=== PATIENT | female | born 1945 | race Caucasian/White ===

== ENCOUNTER 2018-09-23 16:27 | Inpatient (IN) | payer MEDICARE, OTHER ==
[~2018-09-23] VITALS: Ht 160 cm; Wt 70.4 kg
[~2018-09-23 16:27] MED LIST: LEVO50TA64; LORA-52; NIFE60TA18
--- NOTE | 2018-09-23 16:41 | ERD ---
ER Documentation Chief Complaint Chief Complaint syncopal episode in bathroom. left arm pain no deformity. loc per ems HPI 73-year-old woman brought in by EMS after syncopal episode while at a [employer] bathroom. She has end-stage kidney disease and is due for hemodialysis today but has not yet received it. She had fecal incontinence with a syncopal episode today. She denies chest pain or shortness of breath, no headache or blurry vision, no vomiting. Patient fell onto her right side and also complains of right shoulder pain. Patient was transported here by EMS without further complications. ROS All systems reviewed and are negative except as per history of present illness. Medications Home Meds Reported Medications Atorvastatin Calcium* (Atorvastatin Calcium*) 20 Mg Tablet, 20 MG PO QHS, #30 TAB 09/23/18 Levothyroxine Sodium* (Levoxyl*) 137 Mcg Tablet, 137 MCG PO BEFORE BREAKFAST, #30 TAB 09/23/18 Benazepril Hcl* (Benazepril Hcl*) 40 Mg Tablet, 40 MG PO DAILY, #30 TAB 09/23/18 Amlodipine Besylate* (Amlodipine Besylate*) 10 Mg Tablet, 10 MG PO DAILY, #30 TAB 09/23/18 Hydralazine Hcl* (Apresoline*) 50 Mg Tab, 50 MG PO BID PRN for BLOOD PRESSURE SUPPORT, #60 TAB 09/23/18 Gabapentin* (Gabapentin*) 300 Mg Capsule, 300 MG PO DAILY, #60 CAP 09/23/18 Carvedilol* (Carvedilol*) 12.5 Mg Tablet, 12.5 MG PO BID, #60 TAB 09/23/18 Calcium Acetate* (Calcium Acetate*) 667 Mg Capsule, 1334 MG PO WITH MEALS, #60 CAP 09/23/18 Discontinued Reported Medications Loratadine (Alavert) 10 Mg Tablet 08/02/09 Levothyroxine Sodium (Levothroid) 50 Mcg Tablet 08/02/09 Nifedipine* (Nifediac CC*) 60 Mg Tablet.sa 08/02/09 Allergies Allergies: Coded Allergies: No Known Drug Allergy (Verified Allergy, Unknown, 09/23/18) Uncoded Allergies: NONE (Allergy, Mild, 08/02/09) PMhx/Soc Hypertension, hypothyroidism, end-stage kidney disease hemodialysis dependent History of Surgery: No Hx Neurological Disorder: No Hx Respiratory Disorders: No Hx Psychiatric Problems: No Hx Alcohol Use: No Hx Substance Use: No Hx Tobacco Use: No Smoking Status: Never smoker FmHx Family History: No diabetes Physical Exam Vitals Vital Signs Date Temp Pulse Resp B/P (MAP) Pulse Ox O2 O2 Flow FiO2 Time Delivery Rate 09/23/18 97.5 53 18 102/50 98 16:32 (67) Physical Exam GENERAL: Well-developed, well-nourished, well-hydrated, in no apparent distress, looks nontoxic in appearance HEENT: Moist mucous membranes, pink conjunctiva, no cervical spine tenderness or step-off deformities, no goiter NEURO: Alert and oriented 3, cranial nerves II through XII intact bilaterally, pupils equal round reactive to light, no focal deficits or facial asymmetry, sensation intact distally Strength 5/5 in upper and lower extremities bilater ally CARDIAC: Regular rate and rhythm, no murmurs rubs or gallops LUNGS: Clear bilaterally no wheezing crackles or stridor ABDOMEN: Soft nontender, no guarding, no rigidity, no rebound, no psoas sign no obturator sign. Normoactive bowel sounds SKIN: Warm and dry to touch, no abrasions, contusions, or hematomas, no lacerations, no ecchymosis, no target lesions, and without ulcers EXTREMITIES: No clubbing cyanosis or edema, calves are bilaterally symmetrical, no Homans sign, no popliteal cord sign. Distal pulses equal and bilateral Result Diagram: 09/23/18 1704 09/23/18 1810 Results 24 hrs Laboratory Tests Test 09/23/18 17:04 09/23/18 18:10 White Blood Count 2.7 10^3/ul Red Blood Count 3.56 10^6/ul Hemoglobin 11.6 g/dl Hematocrit 36.4 % Mean Corpuscular Volume 102.2 fl Mean Corpuscular Hemoglobin 32.6 pg Mean Corpuscular Hemoglobin Concent 31.9 g/dl Red Cell Distribution Width 16.7 % Platelet Count 150 10^3/UL Mean Platelet Volume 10.2 fl Immature Granulocytes % 0.400 % Neutrophils % % Segmented Neutrophils % (Manual) 47 % Lymphocytes % % Lymphocytes % (Manual) 31 % Reactive Lymphocytes % (Manual) 1 % Monocytes % % Monocytes % (Manual) 15 % Eosinophils % % Eosinophils % (Manual) 5 % Basophils % % Promyelocytes % (Manual) 1 % Nucleated Red Blood Cells % 0.0 /100WBC Immature Granulocytes # 0.010 10^3/ul Neutrophils # 10^3/ul Lymphocytes (Manual) 0.8 10^3/ul Lymphocytes # 10^3/ul Reactive Lymphocytes # 0.0 10^3/ul Monocytes # 10^3/ul Monocytes # (Manual) 0.4 10^3/ul Eosinophils # 10^3/ul Basophils # 10^3/ul Promyelocytes # 0.0 10^3/ul Nucleated Red Blood Cells # 10^3/ul Platelet Estimate NORMAL Giant Platelets 6 % Polychromasia 1+ Anisocytosis 1+ Macrocytosis 1+ Sodium Level 136 mmol/L Potassium Level 5.7 mmol/L Chloride Level 97 mmol/L Carbon Dioxide Level 23 mmol/L Anion Gap 16 Blood Urea Nitrogen 83 mg/dl Creatinine 9.06 mg/dl Est Glomerular Filtrat Rate mL/min mL/min Glucose Level 126 mg/dl Calcium Level 9.2 mg/dl Total Bilirubin 0.2 mg/dl Direct Bilirubin 0.00 mg/dl Indirect Bilirubin 0.2 mg/dl Aspartate Amino Transf (AST/SGOT) 54 IU/L Alanine Aminotransferase (ALT/SGPT) 47 IU/L Alkaline Phosphatase 69 IU/L Troponin I Pending Total Protein 8.2 g/dl Albumin 4.3 g/dl Globulin 3.90 g/dl Albumin/Globulin Ratio 1.10 Lipase 129 U/L Current Medications Medications Dose Sig/Amber Start Time Status Last (Trade) Ordered Route PRN Stop Time Admin Dose Reason Admin Oxycodone/ 1 tab ONCE ONCE 09/23/18 DC Acetaminophen PO 18:30 (Percocet 09/23/18 18:31 (5/ 325)) IV Flush 3 ml PER 09/23/18 (NS 3 ml) PROTOCOL IV 18:30 Ondansetron 4 mg Q6H PRN 09/23/18 HCl (Zofran IV 18:30 Inj) NAUSEA/VOMITI NG 650 mg Q6H PRN 09/23/18 Acetaminophen PO .PAIN 1-3 18:30 (Tylenol OR TEMP Tab) Procedures/MDM IV line was established patient was placed on [employer] professional rhythm strip revealed a sinus rhythm at about 80 bpm with upright P and T waves. Patient was afebrile One AP view of the chest performed, read by me reveals no acute infiltrates, no rmal mediastinum, sharp costophrenic and cardiac borders, no air under the diaphragm. Otherwise unremarkable chest x-ray. X-ray right shoulder 3V Interpreted by me: Bones: Possible glenoid chip fracture Joints: No dislocation Foreign body: None CBC was normal, electrolytes reveal end-stage kidney disease, mild hyperkalemia, liver function tests normal, troponin negative EKG was performed, read by me reveals sinus bradycardia 50 bpm normal axis, intraventricular conduction delay with incarceration of 100 ms, first-degree AV block at 206 ms, prolonged QT of 512 ms Patient will be admitted to telemetry setting for continued medical management and cardiology consultation as well as for hemodialysis. I spoke to Dr. Escalante, patient's merchant mariner and he agreed to inpatient hemodialysis Departure Diagnosis: Primary Impression: Syncope Syncope type: unspecified Qualified Codes: R55 - Syncope and collapse Additional Impressions: End stage kidney disease Bradycardia Prolonged QT syndrome Condition: RADHA Bates MD September 23, 2018 16:41
[2018-09-23] MEDS ORDERED: CALC667C PO ×2 (17:14→22:18)
[2018-09-23] MEDS ORDERED: CARV12.579 PO (17:15)
[2018-09-23] MEDS ORDERED: HYDR-3672 PO ×2 (17:15→22:18)
[2018-09-23] MEDS ORDERED: GABA300C16 PO ×2 (17:15→22:18)
[2018-09-23] MEDS ORDERED: LEVO137T26 PO (17:16)
[2018-09-23] MEDS ORDERED: ATOR20TA38 PO (17:16)
[2018-09-23] MEDS ORDERED: BENA40TA56 PO ×2 (17:16→22:18)
[2018-09-23] MEDS ORDERED: AMLO-147 PO (17:16)
[2018-09-23] MEDS ORDERED: ACETAMINOPHEN 325 MG TAB PO PRN (18:30)
[2018-09-23] MEDS ORDERED: ONDANSETRON 4 MG INJ IV PRN (18:30)
[2018-09-23] MEDS ORDERED: OXYCODONE/ACETAMINOPHEN (5/325) TAB PO ONE (18:30)
[2018-09-23] MEDS ORDERED: NACL 0.9% 3 ML SYG IV SCH (18:30)
[2018-09-23 20:25] VITALS: Ht 160 cm; Wt 70.4 kg
[2018-09-23 20:44] VITALS: BP 145/63; PULSE 54; RESP 18
[2018-09-23 20:46] VITALS: PULSE 52
[2018-09-23] MEDS ORDERED: OLOP2.5D BOTH EYES (22:18)
[2018-09-23] MEDS ORDERED: CHOL100062 PO (22:18)
[2018-09-23] MEDS ORDERED: AMLO2.5T78 PO (22:18)
[2018-09-23] MEDS ORDERED: DIPH25CA6 PO (22:18)
[2018-09-23] MEDS ORDERED: ATOR10TA65 PO (22:18)
[2018-09-23] MEDS ORDERED: FLUT16SP17 NASAL (22:18)
[2018-09-23] MEDS ORDERED: LEVO137T3 PO (22:18)
[2018-09-23] MEDS ORDERED: CARV6.2579 PO (22:18)
[2018-09-23] MEDS ORDERED: MINE3.5O31 BOTH EYES (22:18)
[2018-09-23] MEDS ORDERED: MIRT7.5T8 PO (22:18)
[2018-09-23] MEDS: HYDROCODONE/APAP (5/325) TAB PO PRN (22:51)
[2018-09-23] MEDS ORDERED: HYDROCODONE/APAP (5/325) TAB PO PRN (23:00)
[2018-09-23 23:33] VITALS: BP 122/58; PULSE 60; RESP 19
[2018-09-24] VITALS (14 sets, daily range): BP systolic 117–145; BP diastolic 53–66; PULSE 55–63; RESP 18–21
[2018-09-24] MEDS ORDERED: SODIUM POLYSTYRENE 15 GM KIT (POWDER + SORBITOL) PO ONE (02:30)
--- NOTE | 2018-09-24 06:02 | HP ---
Date/Time of Note Date/Time of Note DATE: 09/24/18 TIME: 05:56 Assessment/Plan VTE Prophylaxis Pharmacological prophylaxis: other Lines/Catheters IV Catheter Type (from Nrsg): Peripheral IV Assessment/Plan Assessment/Plan 1. Syncope -Patient passed out in the bathroom at a restaurant -Main complaint is right upper extremity and to some extent right hip pain -Obtain head CT, 2D echo and carotid Doppler ultrasound -Check orthostatics 2. Questionable right glenoid fracture -Presumed to be acute given patient's presentation and complaint -Pain management -Consider Ortho consult in a.m. 3. Right hip pain: We will order x-ray 4. ESRD on HD: Patient missed dialysis today because she had to come to the hospital -Nephrology consult 5. Hyperkalemia: See #1 -We will give Kayexalate for now 6. Hypertension: BP is in acceptable range Result Diagram: 09/23/18 1704 09/23/18 1810 Results 24hrs Laboratory Tests Test 09/23/18 17:04 09/23/18 18:10 09/24/18 05:03 White Blood Count 2.7 L Pending Red Blood Count 3.56 L Pending Hemoglobin 11.6 L Pending Hematocrit 36.4 L Pending Mean Corpuscular Volume 102.2 H Pending Mean Corpuscular Hemoglobin 32.6 Pending Mean Corpuscular Hemoglobin Concent 31.9 L Pending Red Cell Distribution Width 16.7 H Pending Platelet Count 150 Pending Mean Platelet Volume 10.2 Pending Immature Granulocytes % 0.400 Neutrophils % Segmented Neutrophils % (Manual) 47 Lymphocytes % Lymphocytes % (Manual) 31 Reactive Lymphocytes % (Manual) 1 H Monocytes % Monocytes % (Manual) 15 H Eosinophils % Eosinophils % (Manual) 5 Basophils % Promyelocytes % (Manual) 1 H Nucleated Red Blood Cells % 0.0 Immature Granulocytes # 0.010 Neutrophils # Lymphocytes (Manual) 0.8 Lymphocytes # Reactive Lymphocytes # 0.0 Monocytes # Monocytes # (Manual) 0.4 Eosinophils # Basophils # Promyelocytes # 0.0 Nucleated Red Blood Cells # Platelet Estimate NORMAL Giant Platelets 6 H Polychromasia 1+ Anisocytosis 1+ Macrocytosis 1+ Sodium Level 136 Potassium Level 5.7 H Chloride Level 97 Carbon Dioxide Level 23 Anion Gap 16 H Blood Urea Nitrogen 83 H Creatinine 9.06 H Est Glomerular Filtrat Rate mL/min Glucose Level 126 Calcium Level 9.2 Total Bilirubin 0.2 Direct Bilirubin 0.00 Indirect Bilirubin 0.2 Aspartate Amino Transf (AST/SGOT) 54 H Alanine Aminotransferase (ALT/SGPT) 47 Alkaline Phosphatase 69 Troponin I 0.017 Total Protein 8.2 H Albumin 4.3 Globulin 3.90 H Albumin/Globulin Ratio 1.10 Lipase 129 HPI/ROS Admit Date/Time Admit Date/Time September 23, 2018 at 17:44 Hx of Present Illness This is a 73-year-old female with a history of hypertension, ESRD on HD, previous history of IV drug use, hep C who came to the ER after she had a syncopal episode at a restaurant. She complains of right upper extremity and the right hip pain. She complains of feeling dizzy. She had urinary and fecal incontinence. No seizure activity. Denied facial droop, focal weakness. Patient was due for dialysis in the late afternoon, but she had to come to the hospital because of syncope. When she presented to ER, blood pressure was is in acceptable range. Heart rate has been in the 50s. Shoulder x-ray in the ER shows osseous fragments of the right glenoid, possibly representing age-indeterminate fracture. Lab shows a WBC of 2.7, potassium 5.7, hemoglobin 10. PMH/Family/Social Past Medical History Medical History: other (See HPI) Past Surgical History Past Surgical Hx: other (See HPI) Family History Significant Family History: no pertinent family hx Social History Alcohol Use: none Smoking Status: Never smoker Drug Use: none Exam Constitutional: no acute distress Head: normocephalic, atraumatic Eyes: EOMI, PERRL Respiratory: clear to auscultation, normal air movement Cardiovascular: regular rate and rhythm, nl pulses Gastrointestinal: soft, non-tender Extremities: normal pulses Medications Current Medications IV Flush (NS 3 ml) 3 ml PER PROTOCOL IV ; Start 09/23/18 at 18:30 Ondansetron HCl (Zofran Inj) 4 mg Q6H PRN IV NAUSEA/VOMITING; Start 09/23/18 at 18:30 Acetaminophen (Tylenol Tab) 650 mg Q6H PRN PO .PAIN 1-3 OR TEMP; Start 09/23/18 at 18:30 Acetaminophen/ Hydrocodone Bitart ([place] (5/325)) 1 tab Q4H PRN PO MODERATE PAIN LEVEL 4-6; Start 09/23/18 at 23:00 Acetaminophen/ Hydrocodone Bitart ([place] (5/325)) 2 tab Q4H PRN PO MODERATE PAIN LEVEL 4-6 Last administered on 09/23/18at 22:51; Admin Dose 2 TAB; Start 09/23/18 at 23:00 Coded Allergies: No Known Drug Allergy (Verified Allergy, Unknown, 09/23/18) Social History Smoking Status: Unknown if ever smoked Exam/Review of Systems Vital Signs Vitals Vital Signs Date Temp Pulse Resp B/P (MAP) Pulse Ox O2 O2 Flow FiO2 Time Delivery Rate 09/24/18 57 04:00 09/24/18 98.1 21 124/59 96 03:45 (80) 09/23/18 Room Air 19:47 CIRA PARNELL MD September 24, 2018 06:02
--- NOTE | 2018-09-24 11:08 | CONS ---
Assessment/Plan Assessment/Plan Hospital Course (Demo Recall) 1. hyperkalemia due to ESRD, missed HD. ESRD via left AV fistula 2. Missed HD session yesterday to syncope 3. Hypothyroidism 4. Neutropenia with macrocytic normochromic anemia of chronic disease 5. Hypertension controlled 6. Syncope 7. Overweight 8. Hyperlipidemia 9. Bradycardia, might be secondary to hyperkalemia 10. Diarrhea 11. Abdominal pain , left upper quadrant. Pt is s/p cholecystectomy. Might be pancreatitis. Transaminitis is present Assessment/Plan (Daily) -C/w HD, one will be ordered today -monitor BP -stool C dif -c.w Home meds -phos level -B12 level tmv -US abdomen -lipase level today is normal, see tmv Consultation Date/Type/Reason Admit Date/Time September 23, 2018 at 17:44 Initial Consult Date 09/23/2018 Type of Consult nephrology Reason for Consultation ESRD Date/Time of Note DATE: 09/24/18 TIME: 11:00 24 HR Interval Summary Free Text/Dictation diarrhea, feel weak Exam/Review of Systems Exam Vitals Vital Signs Date Temp Pulse Resp B/P (MAP) Pulse Ox O2 O2 Flow FiO2 Time Delivery Rate 09/24/18 56 08:11 09/24/18 98.8 20 117/56 93 07:37 (76) 09/23/18 Room Air 19:47 Intake and Output 09/23/18 09/23/18 09/24/18 1515:00 23:00 07:00 IntakeIntake Total 400 ml BalanceBalance 400 ml Exam left arm AV fistula Constitutional: alert, oriented Neck: supple Respiratory: clear to auscultation Cardiovascular: regular rate and rhythm Gastrointestinal: soft, rebound or guarding (left upper abdomen) Results Result Diagram: 09/24/18 0503 09/24/18 0503 Results 24hrs Laboratory Tests Test 09/23/18 17:04 09/23/18 18:10 09/24/18 05:03 White Blood Count 2.7 L 2.7 L Red Blood Count 3.56 L 3.42 L Hemoglobin 11.6 L 11.3 L Hematocrit 36.4 L 34.8 L Mean Corpuscular Volume 102.2 H 101.8 H Mean Corpuscular Hemoglobin 32.6 33.0 Mean Corpuscular Hemoglobin Concent 31.9 L 32.5 Red Cell Distribution Width 16.7 H 16.7 H Platelet Count 150 135 L Mean Platelet Volume 10.2 9.2 Immature Granulocytes % 0.400 0.400 Neutrophils % 39.0 Segmented Neutrophils % (Manual) 47 Lymphocytes % 31.8 Lymphocytes % (Manual) 31 Reactive Lymphocytes % (Manual) 1 H Monocytes % 22.3 H Monocytes % (Manual) 15 H Eosinophils % 5.8 Eosinophils % (Manual) 5 Basophils % 0.7 Promyelocytes % (Manual) 1 H Nucleated Red Blood Cells % 0.0 0.0 Immature Granulocytes # 0.010 0.010 Neutrophils # 1.1 L Lymphocytes (Manual) 0.8 Lymphocytes # 0.9 Reactive Lymphocytes # 0.0 Monocytes # 0.6 Monocytes # (Manual) 0.4 Eosinophils # 0.2 Basophils # 0.0 Promyelocytes # 0.0 Nucleated Red Blood Cells # 0.0 Platelet Estimate NORMAL Giant Platelets 6 H Polychromasia 1+ Anisocytosis 1+ Macrocytosis 1+ Sodium Level 136 138 Potassium Level 5.7 H 5.5 H Chloride Level 97 97 Carbon Dioxide Level 23 25 Anion Gap 16 H 16 H Blood Urea Nitrogen 83 H 95 H Creatinine 9.06 H 10.33 H Est Glomerular Filtrat Rate mL/min Glucose Level 126 92 Calcium Level 9.2 9.0 Total Bilirubin 0.2 0.1 L Direct Bilirubin 0.00 0.00 Indirect Bilirubin 0.2 0.1 Aspartate Amino Transf (AST/SGOT) 54 H 50 H Alanine Aminotransferase (ALT/SGPT) 47 41 Alkaline Phosphatase 69 53 Troponin I 0.017 Total Protein 8.2 H 7.3 Albumin 4.3 4.1 Globulin 3.90 H 3.20 Albumin/Globulin Ratio 1.10 1.28 Lipase 129 Hemoglobin A1c 4.8 Magnesium Level 2.7 H Medications Medication Current Medications IV Flush (NS 3 ml) 3 ml PER PROTOCOL IV ; Start 09/23/18 at 18:30 Ondansetron HCl (Zofran Inj) 4 mg Q6H PRN IV NAUSEA/VOMITING; Start 09/23/18 at 18:30 Acetaminophen (Tylenol Tab) 650 mg Q6H PRN PO .PAIN 1-3 OR TEMP; Start 09/23/18 at 18:30 Acetaminophen/ Hydrocodone Bitart ([place] (5/325)) 1 tab Q4H PRN PO MODERATE PAIN LEVEL 4-6; Start 09/23/18 at 23:00 Acetaminophen/ Hydrocodone Bitart ([place] ()) 2 tab Q4H PRN PO MODERATE PAIN LEVEL 4-6 Last administered on 09/23/18at 22:51; Admin Dose 2 TAB; Start 09/23/18 at 23:00 EMELY GONZALEZ September 24, 2018 11:08
--- NOTE | 2018-09-24 15:14 | PN ---
Date/Time of Note Date/Time of Note DATE: 09/24/18 TIME: 15:07 Assessment/Plan VTE Prophylaxis Risk score (from Ns)>0 risk: 3 SCD applied (from Ns): Yes Pharmacological prophylaxis: other Lines/Catheters IV Catheter Type (from Nrsg): Peripheral IV Assessment/Plan Hospital Course Assessment and plan 1. Syncope. Patient reportedly fainted in the bathroom of a restaurant. Follow-up on echocardiogram. Carotid Doppler with no significant stenosis. Follow-up on CT scan of the head. Orthostatic blood pressures to be checked as well. 2. Suspect right glenoid fracture. Follow-up on MRI of right shoulder. Continue with analgesics. Orthopedic consultation pending clinical course. 3. Right hip pain. No acute fracture seen. Will get physical therapy to follow. 4. History of end-stage renal disease. Will get nephrology to follow. Monitor elect lites. 5. Hyperkalemia. Kayexalate as needed. Disposition and plan. Follow-up on imaging. Will get physical therapy to follow. Discussed plan of care with Dr. Flowers Result Diagram: 09/24/18 0503 09/24/18 0503 Results 24hrs Laboratory Tests Test 09/23/18 17:04 09/23/18 18:10 09/24/18 05:03 White Blood Count 2.7 L 2.7 L Red Blood Count 3.56 L 3.42 L Hemoglobin 11.6 L 11.3 L Hematocrit 36.4 L 34.8 L Mean Corpuscular Volume 102.2 H 101.8 H Mean Corpuscular Hemoglobin 32.6 33.0 Mean Corpuscular Hemoglobin Concent 31.9 L 32.5 Red Cell Distribution Width 16.7 H 16.7 H Platelet Count 150 135 L Mean Platelet Volume 10.2 9.2 Immature Granulocytes % 0.400 0.400 Neutrophils % 39.0 Segmented Neutrophils % (Manual) 47 Lymphocytes % 31.8 Lymphocytes % (Manual) 31 Reactive Lymphocytes % (Manual) 1 H Monocytes % 22.3 H Monocytes % (Manual) 15 H Eosinophils % 5.8 Eosinophils % (Manual) 5 Basophils % 0.7 Promyelocytes % (Manual) 1 H Nucleated Red Blood Cells % 0.0 0.0 Immature Granulocytes # 0.010 0.010 Neutrophils # 1.1 L Lymphocytes (Manual) 0.8 Lymphocytes # 0.9 Reactive Lymphocytes # 0.0 Monocytes # 0.6 Monocytes # (Manual) 0.4 Eosinophils # 0.2 Basophils # 0.0 Promyelocytes # 0.0 Nucleated Red Blood Cells # 0.0 Platelet Estimate NORMAL Giant Platelets 6 H Polychromasia 1+ Anisocytosis 1+ Macrocytosis 1+ Sodium Level 136 138 Potassium Level 5.7 H 5.5 H Chloride Level 97 97 Carbon Dioxide Level 23 25 Anion Gap 16 H 16 H Blood Urea Nitrogen 83 H 95 H Creatinine 9.06 H 10.33 H Est Glomerular Filtrat Rate mL/min Glucose Level 126 92 Calcium Level 9.2 9.0 Total Bilirubin 0.2 0.1 L Direct Bilirubin 0.00 0.00 Indirect Bilirubin 0.2 0.1 Aspartate Amino Transf (AST/SGOT) 54 H 50 H Alanine Aminotransferase (ALT/SGPT) 47 41 Alkaline Phosphatase 69 53 Troponin I 0.017 Total Protein 8.2 H 7.3 Albumin 4.3 4.1 Globulin 3.90 H 3.20 Albumin/Globulin Ratio 1.10 1.28 Lipase 129 Hemoglobin A1c 4.8 Magnesium Level 2.7 H Subjective 24 Hr Interval Summary Free Text/Dictation still reports having some right shoulder pain. Reports some difficulty with raising right arm. Exam/Review of Systems Exam Vitals Vital Signs Date Temp Pulse Resp B/P (MAP) Pulse Ox O2 O2 Flow FiO2 Time Delivery Rate 09/24/18 58 12:05 09/24/18 135/60 11:26 (85) 09/24/18 98.2 20 92 11:12 09/23/18 Room Air 19:47 Intake and Output 09/23/18 09/23/18 09/24/18 1515:00 23:00 07:00 IntakeIntake Total 400 ml BalanceBalance 400 ml Constitutional: alert, oriented Psych: nl mood/affect Respiratory: clear to auscultation, normal air movement Cardiovascular: regular rate and rhythm Gastrointestinal: soft, non-tender Musculoskeletal: other (pain noted when patient raising right arm ) Neurological: METAL MOLDER II-XII intact, nl mental status, nl speech Skin: other (no ecchymoses seen on right hip/shoulder) Results Results 24hrs Laboratory Tests Test 09/23/18 17:04 09/23/18 18:10 09/24/18 05:03 White Blood Count 2.7 L 2.7 L Red Blood Count 3.56 L 3.42 L Hemoglobin 11.6 L 11.3 L Hematocrit 36.4 L 34.8 L Mean Corpuscular Volume 102.2 H 101.8 H Mean Corpuscular Hemoglobin 32.6 33.0 Mean Corpuscular Hemoglobin Concent 31.9 L 32.5 Red Cell Distribution Width 16.7 H 16.7 H Platelet Count 150 135 L Mean Platelet Volume 10.2 9.2 Immature Granulocytes % 0.400 0.400 Neutrophils % 39.0 Segmented Neutrophils % (Manual) 47 Lymphocytes % 31.8 Lymphocytes % (Manual) 31 Reactive Lymphocytes % (Manual) 1 H Monocytes % 22.3 H Monocytes % (Manual) 15 H Eosinophils % 5.8 Eosinophils % (Manual) 5 Basophils % 0.7 Promyelocytes % (Manual) 1 H Nucleated Red Blood Cells % 0.0 0.0 Immature Granulocytes # 0.010 0.010 Neutrophils # 1.1 L Lymphocytes (Manual) 0.8 Lymphocytes # 0.9 Reactive Lymphocytes # 0.0 Monocytes # 0.6 Monocytes # (Manual) 0.4 Eosinophils # 0.2 Basophils # 0.0 Promyelocytes # 0.0 Nucleated Red Blood Cells # 0.0 Platelet Estimate NORMAL Giant Platelets 6 H Polychromasia 1+ Anisocytosis 1+ Macrocytosis 1+ Sodium Level 136 138 Potassium Level 5.7 H 5.5 H Chloride Level 97 97 Carbon Dioxide Level 23 25 Anion Gap 16 H 16 H Blood Urea Nitrogen 83 H 95 H Creatinine 9.06 H 10.33 H Est Glomerular Filtrat Rate mL/min Glucose Level 126 92 Calcium Level 9.2 9.0 Total Bilirubin 0.2 0.1 L Direct Bilirubin 0.00 0.00 Indirect Bilirubin 0.2 0.1 Aspartate Amino Transf (AST/SGOT) 54 H 50 H Alanine Aminotransferase (ALT/SGPT) 47 41 Alkaline Phosphatase 69 53 Troponin I 0.017 Total Protein 8.2 H 7.3 Albumin 4.3 4.1 Globulin 3.90 H 3.20 Albumin/Globulin Ratio 1.10 1.28 Lipase 129 Hemoglobin A1c 4.8 Magnesium Level 2.7 H Medications Medication Current Medications IV Flush (NS 3 ml) 3 ml PER PROTOCOL IV ; Start 09/23/18 at 18:30 Ondansetron HCl (Zofran Inj) 4 mg Q6H PRN IV NAUSEA/VOMITING; Start 09/23/18 at 18:30 Acetaminophen (Tylenol Tab) 650 mg Q6H PRN PO .PAIN 1-3 OR TEMP; Start 09/23/18 at 18:30 Acetaminophen/ Hydrocodone Bitart ([place] (5/325)) 1 tab Q4H PRN PO MODERATE PAIN LEVEL 4-6; Start 09/23/18 at 23:00 Acetaminophen/ Hydrocodone Bitart ([place] (5/325)) 2 tab Q4H PRN PO MODERATE PAIN LEVEL 4-6 Last administered on 09/23/18at 22:51; Admin Dose 2 TAB; Start 09/23/18 at 23:00 LISHA ZHANG NP September 24, 2018 15:14
[2018-09-24] MEDS: HYDROCODONE/APAP (5/325) TAB PO PRN (15:54)
[2018-09-25] VITALS (23 sets, daily range): BP systolic 100–163; BP diastolic 51–73; PULSE 54–75; RESP 18–20
[2018-09-25] MEDS: HYDROCODONE/APAP (5/325) TAB PO PRN (00:14)
[2018-09-25] MEDS ORDERED: LORAZEPAM 2 MG INJ IV ONE (04:05)
[2018-09-25] MEDS ORDERED: CHOLECALCIFEROL 1,000 UNIT TAB PO SCH (10:00)
[2018-09-25] MEDS ORDERED: BENAZEPRIL 40 MG TAB PO SCH (10:00)
--- NOTE | 2018-09-25 10:13 | CONS ---
Assessment/Plan Assessment/Plan Hospital Course (Demo Recall) 1. hyperkalemia due to ESRD, missed HD. ESRD via left AV fistula 2. Missed HD session 3. Hypothyroidism 4. Neutropenia with macrocytic normochromic anemia of chronic disease 5. Hypertension controlled 6. Syncope 7. Overweight 8. Hyperlipidemia 9. Bradycardia, might be secondary to hyperkalemia 10. Diarrhea 11. Abdominal pain , left upper quadrant. Pt is s/p cholecystectomy. Might be pancreatitis vs gastroparesis. Transaminitis is present. us ABDOMEN SHOWED: Liver cirrhosis. Status post. cholecystectomy. Dilated CBD. 12 Vit. D deficiency Assessment/Plan (Daily) -C/w HD, -monitor BP, reasonable -TIBC elevated. Ferrlicit for anemia -stool C dif. is not resulted -phos level elevated, c.w Phos. binding meds. -B12 level somehow low normal, pt has macrocytosis, Injection of 1000 mcg once -US abdomen showed CBD 1.1 cm might be stone -lipase level today is normal -vit D supp Consultation Date/Type/Reason Admit Date/Time September 23, 2018 at 17:44 Initial Consult Date 09/23/2018 Type of Consult nephrology Reason for Consultation Dr Escalante Date/Time of Note DATE: 09/25/18 TIME: 10:12 Exam/Review of Systems Exam Vitals Vital Signs Date Temp Pulse Resp B/P (MAP) Pulse Ox O2 O2 Flow FiO2 Time Delivery Rate 09/25/18 56 08:05 09/25/18 Nasal 2.0 07:37 Cannula 09/25/18 98.8 19 134/63 99 07:28 (86) Intake and Output 09/24/18 09/24/18 09/25/18 1414:59 22:59 06:59 IntakeIntake Total 250 ml 100 ml OutputOutput Total 3400 ml BalanceBalance 250 ml -3300 ml Constitutional: alert, oriented Head: normocephalic Eyes: nl conjunctiva ENMT: nl external ears & nose Neck: supple Gastrointestinal: rebound or guarding (epigastric area) Results Result Diagram: 09/24/18 0503 09/24/18 0503 Results 24hrs Laboratory Tests Test 09/25/18 03:45 09/25/18 05:10 Bedside Glucose 89 Phosphorus Level 6.3 H Iron Level 64 Total Iron Binding Capacity 225 L Percent Iron Saturation 28 Lipase 140 Vitamin B12 Level 332 Vitamin D 1,25-Dihydroxy 28.3 L Medications Medication Current Medications IV Flush (NS 3 ml) 3 ml PER PROTOCOL IV ; Start 09/23/18 at 18:30 Ondansetron HCl (Zofran Inj) 4 mg Q6H PRN IV NAUSEA/VOMITING Last administered on 09/25/18at 03:42; Admin Dose 4 MG; Start 09/23/18 at 18:30 Acetaminophen (Tylenol Tab) 650 mg Q6H PRN PO .PAIN 1-3 OR TEMP; Start 09/23/18 at 18:30 Acetaminophen/ Hydrocodone Bitart ([place] (5/325)) 1 tab Q4H PRN PO MODERATE PA IN LEVEL 4-6; Start 09/23/18 at 23:00 Acetaminophen/ Hydrocodone Bitart ([place] (5/325)) 2 tab Q4H PRN PO MODERATE PAIN LEVEL 4-6 Last administered on 09/25/18at 00:14; Admin Dose 2 TAB; Start 09/23/18 at 23:00 Amlodipine Besylate (Norvasc) 5 mg DAILY PO ; Start 09/25/18 at 10:00; Status UNV Eye Lubricant (Akwa Oint) 1 applic BID PRN BOTH EYES DRY EYES; Start 09/25/18 at 10:00; Status UNV Atorvastatin Calcium (Lipitor) 20 mg QHS PO ; Start 09/25/18 at 21:00; Status UNV Calcium Acetate (Phoslo) 1,334 mg WITH MEALS PO ; Start 09/25/18 at 12:00; Status UNV Cholecalciferol (Vitamin D) 1,000 unit DAILY PO ; Start 09/25/18 at 10:00; Status UNV Gabapentin (Neurontin) 300 mg QHS PO ; Start 09/25/18 at 21:00; Status UNV Levothyroxine Sodium (Synthroid) 137 mcg BEFORE BREAKFAST PO ; Start 09/26/18 at 07:00; Status UNV Mirtazapine (Remeron) 7.5 mg HS PO ; Start 09/25/18 at 21:00; Status UNV EMELY GONZALEZ September 25, 2018 10:13
[2018-09-25] MEDS ORDERED: CYANOCOBALAMIN 1000 MCG INJ IM ONE (10:30)
[2018-09-25] MEDS: AMLODIPINE 5 MG TAB PO SCH (11:16)
[2018-09-25] MEDS: CALCIUM ACETATE 667 MG CAP PO SCH ×2 (11:16→18:00)
[2018-09-25] MEDS: METOCLOPRAMIDE 10 MG INJ IV SCH ×2 (11:16→18:00)
[2018-09-25] MEDS ORDERED: OCULAR LUBRICANT 3.5 GM OPH OINT BOTH EYES PRN (12:00)
[2018-09-25] MEDS: ERYTHROMYCIN BASE (DR) 250 MG CAP PO SCH ×2 (12:08→18:00)
--- NOTE | 2018-09-25 13:00 | PN ---
Date/Time of Note Date/Time of Note DATE: 09/25/18 TIME: 12:54 Assessment/Plan VTE Prophylaxis Risk score (from Ns)>0 risk: 3 SCD applied (from Ns): Yes Pharmacological prophylaxis: heparin Lines/Catheters IV Catheter Type (from Nrs): Peripheral IV Assessment/Plan Hospital Course Assessment and plan 1. Syncope. - Patient reportedly fainted in the bathroom of a restaurant. - echo result pending - Carotid Doppler with no significant stenosis. - CT head with no acute abnormality 2. Suspect right glenoid fracture. - Follow-up on MRI of right shoulder. - Continue with analgesics. 3. Right hip pain. - No acute fracture seen. - PT following 4. History of end-stage renal disease. - nephrology following 5. Hyperkalemia. - Kayexalate as needed. 6. CBD dilation per abd u.s. - mrcp pending Disposition and plan. Follow-up on imaging. continue supportive tx. Discussed plan of care with Dr. lFowers Result Diagram: 09/24/18 0503 09/25/18 1143 Results 24hrs Laboratory Tests Test 09/25/18 03:45 09/25/18 05:10 09/25/18 11:43 Bedside Glucose 89 Phosphorus Level 6.3 H Iron Level 64 Total Iron Binding Capacity 225 L Percent Iron Saturation 28 Lipase 140 Vitamin B12 Level 332 Vitamin D 1,25-Dihydroxy 28.3 L Sodium Level 137 Potassium Level 5.0 Chloride Level 96 L Carbon Dioxide Level 28 Anion Gap 13 Blood Urea Nitrogen 51 #H Creatinine 7.41 #H Est Glomerular Filtrat Rate mL/min Glucose Level 91 Calcium Level 9.3 Total Bilirubin 0.3 Direct Bilirubin 0.00 Indirect Bilirubin 0.3 Aspartate Amino Transf (AST/SGOT) 107 H Alanine Aminotransferase (ALT/SGPT) 66 Alkaline Phosphatase 81 # Total Protein 8.9 H Albumin 4.5 Globulin 4.40 H Albumin/Globulin Ratio 1.02 Subjective 24 Hr Interval Summary Free Text/Dictation Reports having some abdominal pain. No other specific complaints at this time. Exam/Review of Systems Exam Vitals Vital Signs Date Temp Pulse Resp B/P (MAP) Pulse Ox O2 O2 Flow FiO2 Time Delivery Rate 09/25/18 59 12:03 09/25/18 97.4 18 142/65 99 11:32 (90) 09/25/18 Nasal 2.0 07:37 Cannula Intake and Output 09/24/18 09/24/18 09/25/18 1515:00 23:00 07:00 IntakeIntake Total 250 ml 100 ml OutputOutput Total 3400 ml BalanceBalance 250 ml -3300 ml Exam Constitutional: alert, oriented Psych: nl mood/affect Respiratory: clear to auscultation, normal air movement Cardiovascular: regular rate and rhythm Gastrointestinal: soft, minimally tender Musculoskeletal: other (pain noted when patient raising right arm ) Neurological: ASW SPECIALIST II-XII intact, nl mental status, nl speech Skin: other (no ecchymoses seen on right hip/shoulder) Results Results 24hrs Laboratory Tests Test 09/25/18 03:45 09/25/18 05:10 09/25/18 11:43 Bedside Glucose 89 Phosphorus Level 6.3 H Iron Level 64 Total Iron Binding Capacity 225 L Percent Iron Saturation 28 Lipase 140 Vitamin B12 Level 332 Vitamin D 1,25-Dihydroxy 28.3 L Sodium Level 137 Potassium Level 5.0 Chloride Level 96 L Carbon Dioxide Level 28 Anion Gap 13 Blood Urea Nitrogen 51 #H Creatinine 7.41 #H Est Glomerular Filtrat Rate mL/min Glucose Level 91 Calcium Level 9.3 Total Bilirubin 0.3 Direct Bilirubin 0.00 Indirect Bilirubin 0.3 Aspartate Amino Transf (AST/SGOT) 107 H Alanine Aminotransferase (ALT/SGPT) 66 Alkaline Phosphatase 81 # Total Protein 8.9 H Albumin 4.5 Globulin 4.40 H Albumin/Globulin Ratio 1.02 Medications Medication Current Medications IV Flush (NS 3 ml) 3 ml PER PROTOCOL IV ; Start 09/23/18 at 18:30 Ondansetron HCl (Zofran Inj) 4 mg Q6H PRN IV NAUSEA/VOMITING Last administered on 09/25/18at 03:42; Admin Dose 4 MG; Start 09/23/18 at 18:30 Acetaminophen (Tylenol Tab) 650 mg Q6H PRN PO .PAIN 1-3 OR TEMP; Start 09/23/18 at 18:30 Acetaminophen/ Hydrocodone Bitart ([place] (5/325)) 1 tab Q4H PRN PO MODERATE PAIN LEVEL 4-6; Start 09/23/18 at 23:00 Acetaminophen/ Hydrocodone Bitart ([place] (5/325)) 2 tab Q4H PRN PO MODERATE PAIN LEVEL 4-6 Last administered on 09/25/18 00:14; Admin Dose 2 TAB; Start 09/23/18 at 23:00 Amlodipine Besylate (Norvasc) 5 mg DAILY PO Last administered on 09/25/18at 11:16; Admin Dose 5 MG; Start 09/25/18 at 10:00 Eye Lubricant (Akwa Oint) 1 applic BID PRN BOTH EYES DRY EYES; Start 09/25/18 at 12:00 Atorvastatin Calcium (Lipitor) 20 mg QHS PO ; Start 09/25/18 at 21:00 Calcium Acetate (Phoslo) 1,334 mg WITH MEALS PO Last administered on 09/25/18 11:16; Admin Dose 1,334 MG; Start 09/25/18 at 12:00 Gabapentin (Neurontin) 300 mg QHS PO ; Start 09/25/18 at 21:00 Levothyroxine Sodium (Synthroid) 137 mcg BEFORE BREAKFAST PO ; Start 09/26/18 at 07:00 Mirtazapine (Remeron) 7.5 mg HS PO ; Start 09/25/18 at 21:00 Erythromycin (Erythromycin) 250 mg WITH MEALS PO Last administered on 09/25/18at 12:08; Admin Dose 250 MG; Start 09/25/18 at 12:00 Metoclopramide HCl (Reglan) 10 mg WITH MEALS IV Last administered on 09/25/18at 11:16; Admin Dose 10 MG; Start 09/25/18 at 12:00 Ferric Sodium Gluconate Complex 125 mg/Sodium Chloride 100 ml @ 100 mls/hr DAILY@1300 IVPB ; Start 09/25/18 at 13:00; Stop 09/27/18 at 13:59 Ergocalciferol (Drisdol) 50,000 unit Mo@09 PO ; Start 09/26/18 at 09:00 LISHA ZHANG NP September 25, 2018 13:00
[2018-09-25] MEDS: SOD FERRIC GLUC COMPLX 125 MG in SOD CHLORIDE 0.9% 100 ML IVPB SCH (13:16)
--- NOTE | 2018-09-25 19:21 | RADRPT ---
Echocardiogram Report Patient Name: NYASIA HOLDERPatient ID: [id number] : 1945 (73y 4m)Study Date: 09/25/2018 9:54:45 AM Gender: FAccession #: [id number] Tech: [facility] Location: [facility] Ref.Physician: CIRA PARNELL Height(Cm): 160 BSA: 1.77Weight(Kg): 70.3 Quality: AdequateOrder Physician: CIRA PARNELL Account #: Procedures: Echocardiographic Report: Transthoracic echocardiogram with complete 2D, M-Mode, and doppler examination. Indications: Syncope. Measurements: 2D/M Mode Doppler Measurement Value Normal Range Measurement Value Normal Range LVIDd 2D 5.0 [ 3.8 - 5.2 ] cm AV Peak Christian 1.7 [ 100.0 - 170.0 ] cm/se c LVIDs 2D 3.2 [ 2.2 - 3.5 ] cm AV Peak PG 12.0 [ 2.0 - 9.0 ] mmHg LVPWd 2D 1.3 [ 0.6 - 0.9 ] cm LVOT Peak Christian 0.9 [ 70.0 - 110.0 ] cm/sec IVSd 2D 1.5 [ 0.6 - 0.9 ] cm LVOT Peak PG 4.0 [ 2.0 - 6.0 ] mmHg AoR Diam 2D 3.8 [ 2.3 - 3.1 ] cm MV E Peak Christian 1.1 [ 60.0 - 130.0 ] cm/sec EDV 2D 119.0 [ 46.0 - 106.0 ] ml MV A Peak Christian 1.3 [ 100.0 - 120.0 ] cm/se c ESV 2D 40.6 [ 14.0 - 42.0 ] ml MV E/A 0.9 [ 0.8 - 1.5 ] ratio EF 2D 65.9 [ 54.0 - 74.0 ] percent MV PHT 118.0 [ 20.0 - 100.0 ] msec LA Dimen 2D 4.3 [ 2.7 - 3.8 ] cm MV Decel Time 404 [ 104 - 258 ] msec MV Decel [place] 3 Med E` Christian 0.0 cm/sec MV E/A 0.9 [ 0.8 - 1.5 ] ratio MVA PHT 1.9 [ 2.0 - 4.0 ] cm2 TR Peak Christian 2.4 [ 100.0 - 280.0 ] cm/se c TR Peak PG 23.0 mmHg PV Peak Christian 1.5 [ 40.0 - 80.0 ] cm/sec PV Peak PG 8.0 mmHg RVSP 26.0 [ 10.0 - 36.0 ] mmHg RA Pressure 3.0 mmHg Findings: Left Ventricle: Normal left ventricular systolic function. Normal left ventricular cavity size. Moderate concentric left ventricular hypertrophy. Ejection fraction is visually estimated at 55 %. Tissue Doppler/Mitral Doppler indices are consistent with impaired relaxation (Stage I diastolic dysfunction). E/E'= 24. Right Ventricle: Normal right ventricular size. Normal right ventricular systolic function. Left Atrium: There is mild enlargement of left atrium. Right Atrium: The right atrium is normal in size. Atrial Septum: Normal atrial septum. Mitral Valve: Mild to moderate mitral annular calcification, mild calcification also noted on MV chordae. Trace mitral regurgitation. Aortic Valve: No significant aortic stenosis or insufficiency. Aortic cusps appear mildly calcified. Trileaflet aortic valve. Tricuspid Valve: Normal appearance and function of the tricuspid valve with trace physiologic regurgitation. The estimated Peak RVSP is 26 mmHg. Pulmonic Valve: Normal pulmonic valve appearance. Pericardium: Normal pericardium with no significant pericardial effusion. Aorta: Sinus of valsalva is mildly dilated. Sinus of valsalva 3.80 cm. Ascending aorta is normal. IVC: Normal size and normal respiratory collapse consistent with normal right atrial pressure. Pulmonary Artery: Normal pulmonary artery size. Conclusions: Normal left ventricular systolic function. Normal left ventricular cavity size. Moderate concentric left ventricular hypertrophy. Ejection fraction is visually estimated at 55 %. Tissue Doppler/Mitral Doppler indices are consistent with impaired relaxation (Stage I diastolic dysfunction). E/E'= 24. There is mild enlargement of left atrium. Mild to moderate mitral annular calcification, mild calcification also noted on MV chordae. Trace mitral regurgitation. No significant aortic stenosis or insufficiency. Aortic cusps appear mildly calcified. Trileaflet aortic valve. Normal appearance and function of the tricuspid valve with trace physiologic regurgitation. The estimated Peak RVSP is 26 mmHg. Electronically Signed By: Andre Spencer 2018-09-25 19:20:46 PDT
[2018-09-25] MEDS: ATORVASTATIN 20 MG TAB PO SCH (20:31)
[2018-09-25] MEDS: GABAPENTIN 300 MG CAP PO SCH (20:32)
[2018-09-25] MEDS: MIRTAZAPINE 15 MG TAB PO SCH (20:32)
[2018-09-25] MEDS: HEPARIN 5,000 UNIT/1 ML VIAL SC SCH (20:43)
[2018-09-26] VITALS (11 sets, daily range): BP systolic 119–152; BP diastolic 55–72; PULSE 54–67; RESP 17–19
[2018-09-26] MEDS: LEVOTHYROXINE 137 MCG TAB PO SCH (06:09)
[2018-09-26] MEDS: CALCIUM ACETATE 667 MG CAP PO SCH ×3 (08:49→17:55)
[2018-09-26] MEDS: ERYTHROMYCIN BASE (DR) 250 MG CAP PO SCH ×3 (08:49→17:55)
[2018-09-26] MEDS: AMLODIPINE 5 MG TAB PO SCH (08:50)
[2018-09-26] MEDS: METOCLOPRAMIDE 10 MG INJ IV SCH ×3 (08:50→18:19)
[2018-09-26] MEDS ORDERED: ERGOCALCIFEROL 50,000 UNIT CAP PO SCH (09:00)
--- NOTE | 2018-09-26 09:20 | CONS ---
Assessment/Plan Assessment/Plan Hospital Course (Demo Recall) 1. hyperkalemia due to ESRD, missed HD. ESRD via left AV fistula 2. Missed HD session 3. Hypothyroidism 4. Neutropenia with macrocytic normochromic anemia of chronic disease 5. Hypertension controlled 6. Syncope 7. Overweight 8. Hyperlipidemia 9. Bradycardia, might be secondary to hyperkalemia 10. Diarrhea 11. Abdominal pain , left upper quadrant. Pt is s/p cholecystectomy. Might be pancreatitis vs gastroparesis. Transaminitis is present. us ABDOMEN SHOWED: Liver cirrhosis. Status post. cholecystectomy. Dilated CBD. 12 Vit. D deficiency Assessment/Plan (Daily) -C/w HD, one today -monitor BP, reasonable -TIBC elevated. Ferrlicit for anemia -stool C dif. is not collected. pt has no stool for 2 days -c/w reglan, Erythromycin. -phos level elevated, c.w Phos. binding meds. -US abdomen showed CBD 1.1 cm might be stone, MRCP negative -lipase level is normal -vit D supp Consultation Date/Type/Reason Admit Date/Time September 23, 2018 at 17:44 Initial Consult Date 09/23/2018 Type of Consult nephrology Date/Time of Note DATE: 09/26/18 TIME: 09:20 24 HR Interval Summary Constitutional: improved Exam/Review of Systems Exam Vitals Vital Signs Date Temp Pulse Resp B/P (MAP) Pulse Ox O2 O2 Flow FiO2 Time Delivery Rate 09/26/18 61 08:05 09/26/18 97.8 17 119/55 99 07:24 (76) 09/25/18 Nasal 2.0 07:37 Cannula Intake and Output 09/25/18 09/25/18 09/26/18 1515:00 23:00 07:00 IntakeIntake Total 350 ml 400 ml BalanceBalance 350 ml 400 ml Exam Left av fistula Constitutional: alert, oriented Psych: no complaints ENMT: nl external ears & nose Neck: supple Respiratory: clear to auscultation Cardiovascular: regular rate and rhythm Gastrointestinal: soft, rebound or guarding; No nl liver, spleen, No non-tender, No ascites, No bowel sounds, No distended, No firm, No hepatomegaly, No mass, No splenomegaly, No surgical scars, No tender, No other Results Result Diagram: 09/26/18 0559 09/26/18 0559 Results 24hrs Laboratory Tests Test 09/25/18 11:43 09/26/18 05:59 Sodium Level 137 136 Potassium Level 5.0 5.5 H Chloride Level 96 L 96 L Carbon Dioxide Level 28 26 Anion Gap 13 14 H Blood Urea Nitrogen 51 #H 68 H Creatinine 7.41 #H 9.28 H Est Glomerular Filtrat Rate mL/min Glucose Level 91 68 #L Calcium Level 9.3 9.0 Total Bilirubin 0.3 Direct Bilirubin 0.00 Indirect Bilirubin 0.3 Aspartate Amino Transf (AST/SGOT) 107 H Alanine Aminotransferase (ALT/SGPT) 66 Alkaline Phosphatase 81 # Total Protein 8.9 H Albumin 4.5 Globulin 4.40 H Albumin/Globulin Ratio 1.02 White Blood Count 2.5 L Red Blood Count 3.72 L Hemoglobin 12.1 Hematocrit 37.6 Mean Corpuscular Volume 101.1 H Mean Corpuscular Hemoglobin 32.5 Mean Corpuscular Hemoglobin Concent 32.2 Red Cell Distribution Width 16.3 H Platelet Count 140 Mean Platelet Volume 9.5 Immature Granulocytes % 0.400 Neutrophils % 30.3 L Lymphocytes % 40.1 Monocytes % 21.9 H Eosinophils % 6.5 Basophils % 0.8 Nucleated Red Blood Cells % 0.0 Immature Granulocytes # 0.010 Neutrophils # 0.8 L Lymphocytes # 1.0 Monocytes # 0.5 Eosinophils # 0.2 Basophils # 0.0 Nucleated Red Blood Cells # 0.0 Medications Medication Current Medications IV Flush (NS 3 ml) 3 ml PER PROTOCOL IV ; Start 09/23/18 at 18:30 Ondansetron HCl (Zofran Inj) 4 mg Q6H PRN IV NAUSEA/VOMITING Last administered on 09/25/18at 03:42; Admin Dose 4 MG; Start 09/23/18 at 18:30 Acetaminophen (Tylenol Tab) 650 mg Q6H PRN PO .PAIN 1-3 OR TEMP; Start 09/23/18 at 18:30 Acetaminophen/ Hydrocodone Bitart ([place] (5/325)) 1 tab Q4H PRN PO MODERATE PAIN LEVEL 4-6; Start 09/23/18 at 23:00 Acetaminophen/ Hydrocodone Bitart ([place] (5/325)) 2 tab Q4H PRN PO MODERATE PAIN LEVEL 4-6 Last administered on 09/25/18at 00:14; Admin Dose 2 TAB; Start 09/23/18 at 23:00 Amlodipine Besylate (Norvasc) 5 mg DAILY PO Last administered on 09/25/18 11:16; Admin Dose 5 MG; Start 09/25/18 at 10:00 Eye Lubricant (Akwa Oint) 1 applic BID PRN BOTH EYES DRY EYES; Start 09/25/18 at 12:00 Atorvastatin Calcium (Lipitor) 20 mg QHS PO Last administered on 09/25/18 20:31; Admin Dose 20 MG; Start 09/25/18 at 21:00 Calcium Acetate (Phoslo) 1,334 mg WITH MEALS PO Last administered on 09/25/18 11:16; Admin Dose 1,334 MG; Start 09/25/18 at 12:00 Gabapentin (Neurontin) 300 mg QHS PO Last administered on 09/25/18 20:32; Admin Dose 300 MG; Start 09/25/18 at 21:00 Levothyroxine Sodium (Synthroid) 137 mcg BEFORE BREAKFAST PO Last administered on 09/26/18 06:09; Admin Dose 137 MCG; Start 09/26/18 at 07:00 Mirtazapine (Remeron) 7.5 mg HS PO Last administered on 09/25/18 20:32; Admin Dose 7.5 MG; Start 09/25/18 at 21:00 Erythromycin (Erythromycin) 250 mg WITH MEALS PO Last administered on 09/25/18 12:08; Admin Dose 250 MG; Start 09/25/18 at 12:00 Metoclopramide HCl (Reglan) 10 mg WITH MEALS IV Last administered on 09/25/18 11:16; Admin Dose 10 MG; Start 09/25/18 at 12:00 Ferric Sodium Gluconate Complex 125 mg/Sodium Chloride 100 ml @ 100 mls/hr DAILY@1300 IVPB Last administered on 09/25/18 13:16; Admin Dose 100 MLS/HR; Start 09/25/18 at 13:00; Stop 09/27/18 at 13:59 Ergocalciferol (Drisdol) 50,000 unit Mo@09 PO ; Start 09/26/18 at 09:00 Heparin Sodium (Porcine) (Heparin (5000 Units/1ml)) 5,000 unit BID SC Last administered on 09/25/18 20:43; Admin Dose 5,000 UNIT; Start 09/25/18 at 21:00 EMELY GONZALEZ September 26, 2018 09:20
[2018-09-26] MEDS ORDERED: SODIUM POLYSTYRENE 15 GM KIT (POWDER + SORBITOL) PO ONE (09:30)
--- NOTE | 2018-09-26 10:02 | PN ---
Date/Time of Note Date/Time of Note DATE: 09/26/18 TIME: 09:57 Assessment/Plan VTE Prophylaxis Risk score (from Nsg)>0 risk: 3 SCD applied (from Nsg): Yes Pharmacological prophylaxis: heparin Lines/Catheters IV Catheter Type (from Nrsg): [place] Assessment/Plan Hospital Course S: no new issues, tolerating a diet, has been seen by PT, pain is better in RUE O: Constitutional: alert, oriented Psych: nl mood/affect Respiratory: clear to auscultation, normal air movement Cardiovascular: regular rate and rhythm Gastrointestinal: soft, minimally tender Musculoskeletal: other (pain noted when patient raising right arm ) Neurological: PEDIATRICS HOSPITALIST II-XII intact, nl mental status, nl speech Skin: other (no ecchymoses seen on right hip/shoulder) assessment and plan: 1. Syncope. - Patient reportedly fainted in the bathroom of a restaurant. - Echo reviewed, showed preserved ejection fraction of 55% with stage I diastolic dysfunction and no significant valvular abnormality - Patient has been in sinus rhythm on the monitor throughout her hospital ization - Carotid Doppler with no significant stenosis. - CT head with no acute abnormality 2. Right shoulder severe pain and reduced range of motion -MRI shows diffuse inflammation and abnormalities Orthopedic review for MRI abnormalities of right shoulder. In interim patient is planned for-Pain is improved with current pain regimen 3. Right hip pain. - No acute fracture seen. - PT following 4. History of end-stage renal disease. - nephrology following 5. Hyperkalemia. - Kayexalate as needed. 6. Nausea and abdominal pain -Abdominal ultrasound showed CBD dilation, this was confirmed to be physiologic on MRCP without evidence of intra-extrahepatic ductal dilatation -Patient started on Reglan and erythromycin with good improvement unknown tolerating diet. Patient likely has gastroparesis from neuropathy. Continue on Reglan outpatient. Disposition and plan. -Dialysis today. We will begin discharge planning. If no need for inpatient orthopedic intervention like surgery, patient will be discharged home in stable condition after HD Result Diagram: 09/26/18 0559 09/26/18 0559 Results 24hrs Laboratory Tests Test 09/25/18 11:43 09/26/18 05:59 Sodium Level 137 136 Potassium Level 5.0 5.5 H Chloride Level 96 L 96 L Carbon Dioxide Level 28 26 Anion Gap 13 14 H Blood Urea Nitrogen 51 #H 68 H Creatinine 7.41 #H 9.28 H Est Glomerular Filtrat Rate mL/min Glucose Level 91 68 #L Calcium Level 9.3 9.0 Total Bilirubin 0.3 Direct Bilirubin 0.00 Indirect Bilirubin 0.3 Aspartate Amino Transf (AST/SGOT) 107 H Alanine Aminotransferase (ALT/SGPT) 66 Alkaline Phosphatase 81 # Total Protein 8.9 H Albumin 4.5 Globulin 4.40 H Albumin/Globulin Ratio 1.02 White Blood Count 2.5 L Red Blood Count 3.72 L Hemoglobin 12.1 Hematocrit 37.6 Mean Corpuscular Volume 101.1 H Mean Corpuscular Hemoglobin 32.5 Mean Corpuscular Hemoglobin Concent 32.2 Red Cell Distribution Width 16.3 H Platelet Count 140 Mean Platelet Volume 9.5 Immature Granulocytes % 0.400 Neutrophils % 30.3 L Lymphocytes % 40.1 Monocytes % 21.9 H Eosinophils % 6.5 Basophils % 0.8 Nucleated Red Blood Cells % 0.0 Immature Granulocytes # 0.010 Neutrophils # 0.8 L Lymphocytes # 1.0 Monocytes # 0.5 Eosinophils # 0.2 Basophils # 0.0 Nucleated Red Blood Cells # 0.0 Exam/Review of Systems Exam Vitals Vital Signs Date Temp Pulse Resp B/P (MAP) Pulse Ox O2 O2 Flow FiO2 Time Delivery Rate 09/26/18 61 08:05 09/26/18 97.8 17 119/55 99 07:24 (76) 09/25/18 Nasal 2.0 07:37 Cannula Intake and Output 09/25/18 09/25/18 09/26/18 1515:00 23:00 07:00 IntakeIntake Total 350 ml 400 ml BalanceBalance 350 ml 400 ml Results Results 24hrs Laboratory Tests Test 09/25/18 11:43 09/26/18 05:59 Sodium Level 137 136 Potassium Level 5.0 5.5 H Chloride Level 96 L 96 L Carbon Dioxide Level 28 26 Anion Gap 13 14 H Blood Urea Nitrogen 51 #H 68 H Creatinine 7.41 #H 9.28 H Est Glomerular Filtrat Rate mL/min Glucose Level 91 68 #L Calcium Level 9.3 9.0 Total Bilirubin 0.3 Direct Bilirubin 0.00 Indirect Bilirubin 0.3 Aspartate Amino Transf (AST/SGOT) 107 H Alanine Aminotransferase (ALT/SGPT) 66 Alkaline Phosphatase 81 # Total Protein 8.9 H Albumin 4.5 Globulin 4.40 H Albumin/Globulin Ratio 1.02 White Blood Count 2.5 L Red Blood Count 3.72 L Hemoglobin 12.1 Hematocrit 37.6 Mean Corpuscular Volume 101.1 H Mean Corpuscular Hemoglobin 32.5 Mean Corpuscular Hemoglobin Concent 32.2 Red Cell Distribution Width 16.3 H Platelet Count 140 Mean Platelet Volume 9.5 Immature Granulocytes % 0.400 Neutrophils % 30.3 L Lymphocytes % 40.1 Monocytes % 21.9 H Eosinophils % 6.5 Basophils % 0.8 Nucleated Red Blood Cells % 0.0 Immature Granulocytes # 0.010 Neutrophils # 0.8 L Lymphocytes # 1.0 Monocytes # 0.5 Eosinophils # 0.2 Basophils # 0.0 Nucleated Red Blood Cells # 0.0 Medications Medication Current Medications IV Flush (NS 3 ml) 3 ml PER PROTOCOL IV ; Start 09/23/18 at 18:30 Ondansetron HCl (Zofran Inj) 4 mg Q6H PRN IV NAUSEA/VOMITING Last administered on 09/25/18at 03:42; Admin Dose 4 MG; Start 09/23/18 at 18:30 Acetaminophen (Tylenol Tab) 650 mg Q6H PRN PO .PAIN 1-3 OR TEMP; Start 09/23/18 at 18:30 Acetaminophen/ Hydrocodone Bitart ([place] (5/325)) 1 tab Q4H PRN PO MODERATE PAIN LEVEL 4-6; Start 09/23/18 at 23:00 Acetaminophen/ Hydrocodone Bitart ([place] (5/325)) 2 tab Q4H PRN PO MODERATE THEO N LEVEL 4-6 Last administered on 09/25/18at 00:14; Admin Dose 2 TAB; Start 09/23/18 at 23:00 Amlodipine Besylate (Norvasc) 5 mg DAILY PO Last administered on 09/25/18at 11:16; Admin Dose 5 MG; Start 09/25/18 at 10:00 Eye Lubricant (Akwa Oint) 1 applic BID PRN BOTH EYES DRY EYES; Start 09/25/18 at 12:00 Atorvastatin Calcium (Lipitor) 20 mg QHS PO Last administered on 09/25/18at 20:31; Admin Dose 20 MG; Start 09/25/18 at 21:00 Calcium Acetate (Phoslo) 1,334 mg WITH MEALS PO Last administered on 09/25/18 11:16; Admin Dose 1,334 MG; Start 09/25/18 at 12:00 Gabapentin (Neurontin) 300 mg QHS PO Last administered on 09/25/18 20:32; Admin Dose 300 MG; Start 09/25/18 at 21:00 Levothyroxine Sodium (Synthroid) 137 mcg BEFORE BREAKFAST PO Last administered on 09/26/18 06:09; Admin Dose 137 MCG; Start 09/26/18 at 07:00 Mirtazapine (Remeron) 7.5 mg HS PO Last administered on 09/25/18 20:32; Admin Dose 7.5 MG; Start 09/25/18 at 21:00 Erythromycin (Erythromycin) 250 mg WITH MEALS PO Last administered on 09/25/18 12:08; Admin Dose 250 MG; Start 09/25/18 at 12:00 Metoclopramide HCl (Reglan) 10 mg WITH MEALS IV Last administered on 09/25/18 11:16; Admin Dose 10 MG; Start 09/25/18 at 12:00 Ferric Sodium Gluconate Complex 125 mg/Sodium Chloride 100 ml @ 100 mls/hr DAILY@1300 IVPB Last administered on 09/25/18 13:16; Admin Dose 100 MLS/HR; Start 09/25/18 at 13:00; Stop 09/27/18 at 13:59 Ergocalciferol (Drisdol) 50,000 unit Mo@09 PO ; Start 09/26/18 at 09:00 Heparin Sodium (Porcine) (Heparin (5000 Units/1ml)) 5,000 unit BID SC Last administered on 09/25/18 20:43; Admin Dose 5,000 UNIT; Start 09/25/18 at 21:00 MARY PATE September 26, 2018 10:02
[2018-09-26] MEDS: HEPARIN 5,000 UNIT/1 ML VIAL SC SCH ×2 (10:09→20:45)
[2018-09-26] MEDS: SOD FERRIC GLUC COMPLX 125 MG in SOD CHLORIDE 0.9% 100 ML IVPB SCH (12:02)
--- NOTE | 2018-09-26 15:11 | CONS ---
Assessment/Plan Assessment/Plan Hospital Course (Demo Recall) 73-year-old female with multiple medical problems including end-stage renal disease on hemodialysis with right rotator cuff tear. This is a mixed traumatic and degenerative tear. Given the type of tear and her medical problems I am recommending conservative treatment. Her examination is pretty good with decent range of motion and strength. I expect this to improve with physical therapy and time. Recommend at least 8 weeks of outpatient physical therapy for right rotator cuff. Patient to follow-up with PCP. Consultation Date/Type/Reason Admit Date/Time September 23, 2018 at 17:44 Date of Consultation: September 26, 2018 Reason for Consultation Right shoulder pain Date/Time of Note DATE: 09/26/18 TIME: 15:04 Hx of Present Illness Is a 73-year-old female with end-stage renal disease on hemodialysis who was admitted to the hospital a few days ago for a syncopal episode. She fell onto her right side. She does have new onset right shoulder pain. She did have some pain prior to the fall but nothing like it is now. The patients pain is in the anterior and lateral aspect of the right shoulder. Pain is radiating to and sometimes past the elbow. The pain is rated as a 7/10. Patient denies complaints of numbness or tingling. The pain is exacerbated by overhead activities and reaching. There is pain at night when lying on the shoulder. The patient does complain of weakness. The patient does complain of loss of ROM. Duration: 3 days. 09/23/2018 Injury: Fell directly onto right side and head Physical Therapy: No Injections: No NSAID's: Contraindicated secondary to end-stage renal disease Prior surgery: No Neck pain: No Patient denies fever, chills, shortness of breath, chest pain, nausea/vomiting, constipation, diarrhea, numbness, and tingling. Past Medical History End-stage renal diseasehemodialysis 3 times a week Hypertension Hepatitis C History of IV drug abuse Home Meds Reported Medications Cholecalciferol* (Vitamin D3*) 1,000 Unit Tablet, 1000 UNIT PO DAILY, TAB 09/23/18 Artificial Tears* (Akwa Oint*) 3.5 Gm Oint, 1 APPLIC BOTH EYES BID PRN for DRY EYES, #1 TUB 09/23/18 Olopatadine* (Pataday*) 0.2% - 2.5 Ml Drops, 1 DROP BOTH EYES DAILY, EA 09/23/18 Mirtazapine* (Mirtazapine*) 7.5 Mg Tablet, 7.5 MG PO HS, TAB 09/23/18 Levothyroxine Sodium* (Levothyroxine Sodium*) 137 Mcg Tablet, 137 MCG PO BEFORE BREAKFAST, #30 TAB 09/23/18 Hydralazine Hcl* (Hydralazine Hcl*) 50 Mg Tab, 50 MG PO BID, #120 TAB 09/23/18 Gabapentin* (Gabapentin*) 300 Mg Capsule, 300 MG PO QHS, #60 CAP 09/23/18 Fluticasone Propionate* (Fluticasone Propionate* Nasal) 50 Mcg/[place] - 16 Gm [place].susp, 2 SPRAYS NASAL DAILY, #1 BOTTLE TO EACH NOSTRIL 09/23/18 Diphenhydramine Hcl* (Diphenhydramine Hcl*) 25 Mg Capsule, 25 MG PO Q6 PRN for ITCHING, CAP 09/23/18 Carvedilol* (Carvedilol*) 6.25 Mg Tablet, 6.25 MG PO BID, #60 TAB 09/23/18 Calcium Acetate* (Calcium Acetate*) 667 Mg Capsule, 1334 MG PO WITH MEALS, #60 CAP 09/23/18 Benazepril Hcl* (Benazepril Hcl*) 40 Mg Tablet, 40 MG PO DAILY, #30 TAB 09/23/18 Atorvastatin Calcium (Atorvastatin Calcium) 10 Mg Tablet, 20 MG PO QHS, #30 TAB 09/23/18 Amlodipine Besylate* (Amlodipine Besylate*) 2.5 Mg Tablet, 5 MG PO DAILY, #30 TAB 09/23/18 Discontinued Reported Medications Artificial Tears* (Akwa Oint*) 3.5 Gm Oint, 1 APPLIC BOTH EYES BID PRN for DRY EYES, #1 TUB 09/23/18 Loratadine (Alavert) 10 Mg Tablet 08/02/09 Levothyroxine Sodium (Levothroid) 50 Mcg Tablet 08/02/09 Nifedipine* (Nifediac CC*) 60 Mg Tablet.sa 08/02/09 Medications Current Medications IV Flush (NS 3 ml) 3 ml PER PROTOCOL IV ; Start 09/23/18 at 18:30 Ondansetron HCl (Zofran Inj) 4 mg Q6H PRN IV NAUSEA/VOMITING Last administered on 09/25/18 03:42; Admin Dose 4 MG; Start 09/23/18 at 18:30 Acetaminophen (Tylenol Tab) 650 mg Q6H PRN PO .PAIN 1-3 OR TEMP; Start 09/23/18 at 18:30 Acetaminophen/ Hydrocodone Bitart ([place] (5/325)) 1 tab Q4H PRN PO MODERATE PAIN LEVEL 4-6; Start 09/23/18 at 23:00 Acetaminophen/ Hydrocodone Bitart ([place] (5/325)) 2 tab Q4H PRN PO MODERATE PAIN LEVEL 4-6 Last administered on 09/25/18 00:14; Admin Dose 2 TAB; Start 09/23/18 at 23:00 Amlodipine Besylate (Norvasc) 5 mg DAILY PO Last administered on 09/26/18 08:50; Admin Dose 5 MG; Start 09/25/18 at 10:00 Eye Lubricant (Akwa Oint) 1 applic BID PRN BOTH EYES DRY EYES; Start 09/25/18 at 12:00 Atorvastatin Calcium (Lipitor) 20 mg QHS PO Last administered on 09/25/18 20:31; Admin Dose 20 MG; Start 09/25/18 at 21:00 Calcium Acetate (Phoslo) 1,334 mg WITH MEALS PO Last administered on 09/26/18 12:02; Admin Dose 1,334 MG; Start 09/25/18 at 12:00 Gabapentin (Neurontin) 300 mg QHS PO Last administered on 09/25/18 20:32; Admin Dose 300 MG; Start 09/25/18 at 21:00 Levothyroxine Sodium (Synthroid) 137 mcg BEFORE BREAKFAST PO Last administered on 09/26/18 06:09; Admin Dose 137 MCG; Start 09/26/18 at 07:00 Mirtazapine (Remeron) 7.5 mg HS PO Last administered on 09/25/18 20:32; Admin Dose 7.5 MG; Start 09/25/18 at 21:00 Erythromycin (Erythromycin) 250 mg WITH MEALS PO Last administered on 09/26/18 at 12:02; Admin Dose 250 MG; Start 09/25/18 at 12:00 Metoclopramide HCl (Reglan) 10 mg WITH MEALS IV Last administered on 5/27/19at 12:02; Admin Dose 10 MG; Start 09/25/18 at 12:00 Ferric Sodium Gluconate Complex 125 mg/Sodium Chloride 100 ml @ 100 mls/hr DAILY@1300 IVPB Last administered on 09/26/18at 12:02; Admin Dose 100 MLS/HR; Start 09/25/18 at 13:00; Stop 09/27/18 at 13:59 Ergocalciferol (Drisdol) 50,000 unit Mo@09 PO Last administered on 09/26/18at 12:02; Admin Dose 50,000 UNIT; Start 09/26/18 at 09:00 Heparin Sodium (Porcine) (Heparin (5000 Units/1ml)) 5,000 unit BID SC Last administered on 09/26/18at 10:09; Admin Dose 5,000 UNIT; Start 09/25/18 at 21:00 Allergies: Coded Allergies: No Known Drug Allergy (Verified Allergy, Unknown, 09/23/18) Social History Smoking Status: Unknown if ever smoked Exam/Review of Systems Exam Vitals Vital Signs Date Temp Pulse Resp B/P (MAP) Pulse Ox O2 O2 Flow FiO2 Time Delivery Rate 09/26/18 62 12:02 09/26/18 98.3 18 125/60 96 11:26 (81) 09/25/18 Nasal 2.0 07:37 Cannula Intake and Output 09/25/18 09/25/18 09/26/18 1515:00 23:00 07:00 IntakeIntake Total 350 ml 400 ml BalanceBalance 350 ml 400 ml Exam General Examination: General Appearance Awake, alert, in no acute distress, pleasant and cooperative. Heart regular rhythm. Lungs breathing comfortably, no tachypnea or dyspnea. MUSCULOSKELETAL: Right shoulder Skin is intact. There is no atrophy around the shoulder. TTP anterior and lateral shoulder ----- Active ROM: FE: 100 Abd: 120 ER: 45 IR: lower back Normal belly press ----- Passive ROM: FE: 130 Abd: 130 ER: 45 ----- Muscle Strength Supraspinatus: 4/5 Subscapularis: 4/5 Infraspinatus: 3+/5 Teres Minor: 3+/5 ----- Positive impingement Negative drop sign ----- Sensation intact to light touch in a median, ulnar, radial, and axillary distribution. Motor is intact in a median, ulnar, radial, anterior interosseous, and posterior interosseous nerve distribution. Radial and ulnar artery are +2. Wrist extension and flexion are intact. Compartments are soft Results Result Diagram: 09/26/18 0559 09/26/18 0559 Results 24hrs Laboratory Tests Test 09/26/18 05:59 White Blood Count 2.5 L Red Blood Count 3.72 L Hemoglobin 12.1 Hematocrit 37.6 Mean Corpuscular Volume 101.1 H Mean Corpuscular Hemoglobin 32.5 Mean Corpuscular Hemoglobin Concent 32.2 Red Cell Distribution Width 16.3 H Platelet Count 140 Mean Platelet Volume 9.5 Immature Granulocytes % 0.400 Neutrophils % 30.3 L Lymphocytes % 40.1 Monocytes % 21.9 H Eosinophils % 6.5 Basophils % 0.8 Nucleated Red Blood Cells % 0.0 Immature Granulocytes # 0.010 Neutrophils # 0.8 L Lymphocytes # 1.0 Monocytes # 0.5 Eosinophils # 0.2 Basophils # 0.0 Nucleated Red Blood Cells # 0.0 Sodium Level 136 Potassium Level 5.5 H Chloride Level 96 L Carbon Dioxide Level 26 Anion Gap 14 H Blood Urea Nitrogen 68 H Creatinine 9.28 H Est Glomerular Filtrat Rate mL/min Glucose Level 68 #L Calcium Level 9.0 Imaging Imaging MRI right shoulder 1. No acute fracture. 2. Edema throughout the anterior inferior capsule and rotator interval compatible with capsulitis. 3. Severe tendinosis / strain of the supraspinatus with partial articular sided tear at the footprint and focal interstitial tear, not well evaluated due to motion. A focal full-thickness perforation cannot be completely excluded on this study. Short-term follow-up repeat MRI may be obtained for better evaluation of degree of tearing. 4. Subscapularis tendinosis with focal partial tear of the superior fibers. 5. Severe infraspinatus tendinosis with small interstitial tear extending proximally to the myotendinous junction. 6. Degeneration/degenerative fraying of the anterior inferior and superior labrum/biceps anchor as above. 7. Moderate glenohumeral joint effusion with synovitis, and focal subcoracoid bursa accumulation. 8. Moderate to severe acromioclavicular arthropathy and mild glenohumeral degenerative change which is not well evaluated due to motion. Medications Medication Current Medications IV Flush (NS 3 ml) 3 ml PER PROTOCOL IV ; Start 09/23/18 at 18:30 Ondansetron HCl (Zofran Inj) 4 mg Q6H PRN IV NAUSEA/VOMITING Last administered on 09/25/18 03:42; Admin Dose 4 MG; Start 09/23/18 at 18:30 Acetaminophen (Tylenol Tab) 650 mg Q6H PRN PO .PAIN 1-3 OR TEMP; Start 09/23/18 at 18:30 Acetaminophen/ Hydrocodone Bitart ([place] (5/325)) 1 tab Q4H PRN PO MODERATE PAIN LEVEL 4-6; Start 09/23/18 at 23:00 Acetaminophen/ Hydrocodone Bitart ([place] (5/325)) 2 tab Q4H PRN PO MODERATE PAIN LEVEL 4-6 Last administered on 09/25/18 00:14; Admin Dose 2 TAB; Start 09/23/18 at 23:00 Amlodipine Besylate (Norvasc) 5 mg DAILY PO Last administered on 09/26/18 08:50; Admin Dose 5 MG; Start 09/25/18 at 10:00 Eye Lubricant (Akwa Oint) 1 applic BID PRN BOTH EYES DRY EYES; Start 09/25/18 at 12:00 Atorvastatin Calcium (Lipitor) 20 mg QHS PO Last administered on 09/25/18 20:31; Admin Dose 20 MG; Start 09/25/18 at 21:00 Calcium Acetate (Phoslo) 1,334 mg WITH MEALS PO Last administered on 09/26/18 12:02; Admin Dose 1,334 MG; Start 09/25/18 at 12:00 Gabapentin (Neurontin) 300 mg QHS PO Last administered on 09/25/18 20:32; Admin Dose 300 MG; Start 09/25/18 at 21:00 Levothyroxine Sodium (Synthroid) 137 mcg BEFORE BREAKFAST PO Last administered on 09/26/18 06:09; Admin Dose 137 MCG; Start 09/26/18 at 07:00 Mirtazapine (Remeron) 7.5 mg HS PO Last administered on 09/25/18 20:32; Admin Dose 7.5 MG; Start 09/25/18 at 21:00 Erythromycin (Erythromycin) 250 mg WITH MEALS PO Last administered on 09/26/18 12:02; Admin Dose 250 MG; Start 09/25/18 at 12:00 Metoclopramide HCl (Reglan) 10 mg WITH MEALS IV Last administered on 09/26/18at 12:02; Admin Dose 10 MG; Start 09/25/18 at 12:00 Ferric Sodium Gluconate Complex 125 mg/Sodium Chloride 100 ml @ 100 mls/hr DAILY@1300 IVPB Last administered on 09/26/18at 12:02; Admin Dose 100 MLS/HR; Start 09/25/18 at 13:00; Stop 09/27/18 at 13:59 Ergocalciferol (Drisdol) 50,000 unit Mo@09 PO Last administered on 09/26/18at 12:02; Admin Dose 50,000 UNIT; Start 09/26/18 at 09:00 Heparin Sodium (Porcine) (Heparin (5000 Units/1ml)) 5,000 unit BID SC Last administered on 09/26/18at 10:09; Admin Dose 5,000 UNIT; Start 09/25/18 at 21:00 ARABELLA LEMA MD September 26, 2018 15:11
--- NOTE | 2018-09-26 18:30 | DS ---
Date/Time of Note Date/Time of Note DATE: 09/26/18 TIME: 18:30 Discharge Summary Admission/Discharge Info Admit Date/Time September 23, 2018 at 17:44 Discharge Date/Time Discharge Diagnosis 1. Syncope: Status post extensive work-up and inpatient telemetry monitoring without significant findings. Patient may have had too tight control on her blood pressure.. Antihypertensives have been adjusted. 2. Right shoulder severe pain and reduced range of motion -MRI shows Right rotator cuff tear, orthopedic surgery recommend conservative management and physical therapy 3. Right hip pain. - No acute fracture seen. - PT following 4. History of end-stage renal disease on HD - nephrology following 5. Hyperkalemia: resolved 6. Gastroparesis from neuropathy with nausea and abdominal pain: Is improved on Reglan, also add daily stool softeners 7. Dyslipidemia on statin 8. Hypertension: Good control 9. Chronic hypothyroidism 10. Vitamin D deficiency 11. Chronic neuropathy status post extensive work-up by monitoring . Patient Condition: Stable Consults Hospital Course . Also her urine was evaluated for possible urinary tract infection level which came back negative. The only significant finding was the fact that her home medications did reflect too tight control on her blood pressure which could have precipitated syncopal episode. Had dosages were adjusted and so far she has done well. She did complain of some severe right shoulder pain as she did have some nausea vomiting. She was worked up with MRI of the shoulder as well as MRCP of the abdomen. MRI of the shoulder showed a rotator cuff tear and she will be seen by orthopedic surgery today if cleared, she will be discharged in stable condition. MRI of the abdomen did not show any significant abnormalities. Patient was started on stool softeners and Reglan for gastroparesis secondary to neuropathy and has done very well on this regimen. She is stable for d ischarge at this time. Patient was essentially worked up for syncope with brain CT, carotid Dopplers, 2D echo Home Meds Reported Medications Cholecalciferol* (Vitamin D3*) 1,000 Unit Tablet, 1000 UNIT PO DAILY, TAB 09/23/18 Artificial Tears* (Akwa Oint*) 3.5 Gm Oint, 1 APPLIC BOTH EYES BID PRN for DRY EYES, #1 TUB 09/23/18 Olopatadine* (Pataday*) 0.2% - 2.5 Ml Drops, 1 DROP BOTH EYES DAILY, EA 09/23/18 Mirtazapine* (Mirtazapine*) 7.5 Mg Tablet, 7.5 MG PO HS, TAB 09/23/18 Levothyroxine Sodium* (Levothyroxine Sodium*) 137 Mcg Tablet, 137 MCG PO BEFORE BREAKFAST, #30 TAB 09/23/18 Hydralazine Hcl* (Hydralazine Hcl*) 50 Mg Tab, 50 MG PO BID, #120 TAB 09/23/18 Gabapentin* (Gabapentin*) 300 Mg Capsule, 300 MG PO QHS, #60 CAP 09/23/18 Fluticasone Propionate* (Fluticasone Propionate* Nasal) 50 Mcg/[place] - 16 Gm [place].susp, 2 SPRAYS NASAL DAILY, #1 BOTTLE TO EACH NOSTRIL 09/23/18 Diphenhydramine Hcl* (Diphenhydramine Hcl*) 25 Mg Capsule, 25 MG PO Q6 PRN for ITCHING, CAP 09/23/18 Carvedilol* (Carvedilol*) 6.25 Mg Tablet, 6.25 MG PO BID, #60 TAB 09/23/18 Calcium Acetate* (Calcium Acetate*) 667 Mg Capsule, 1334 MG PO WITH MEALS, #60 CAP 09/23/18 Benazepril Hcl* (Benazepril Hcl*) 40 Mg Tablet, 40 MG PO DAILY, #30 TAB 09/23/18 Atorvastatin Calcium (Atorvastatin Calcium) 10 Mg Tablet, 20 MG PO QHS, #30 TAB 09/23/18 Amlodipine Besylate* (Amlodipine Besylate*) 2.5 Mg Tablet, 5 MG PO DAILY, #30 TAB 09/23/18 Discontinued Reported Medications Artificial Tears* (Akwa Oint*) 3.5 Gm Oint, 1 APPLIC BOTH EYES BID PRN for DRY EYES, #1 TUB 09/23/18 Loratadine (Alavert) 10 Mg Tablet 08/02/09 Levothyroxine Sodium (Levothroid) 50 Mcg Tablet 08/02/09 Nifedipine* (Nifediac CC*) 60 Mg Tablet.sa 08/02/09 Follow-up Plan Followup with your primary doctor within the next 1-2 weeks. If you don't have one please let someone know, we can give you resources that may help you pick one. You may call Dr Isaias Grant's office. he's accepting new patients Name, Degree: Isaias Grant MD Specialty: Internal Medicine Comments: Office Address: [address] [place] [address] [place] [address] Office Office You may also call your insurance company to assign one to you. Review your medication list with your nurse before leaving and if you need new prescriptions please let your nurse know. I may have made changes to your home medications or given you new prescr iptions, please let your primary doctor know as well. Stay compliant with your medications and report any side effects to your PCP or pharmacist. Return to the ER if you have any concerns and cannot reach your doctors or call your insurance company, they usually have a nurse that can help you. Primary Care Provider Not On Staff Doctor Time spent on discharge: > 30 minutes Pending Labs Laboratory Tests Test 09/26/18 05:59 09/26/18 14:38 White Blood Count 2.5 10^3/ul (4.8-10.8) Red Blood Count 3.72 10^6/ul (4.20-5.40) Hemoglobin 12.1 g/dl (12.0-16.0) Hematocrit 37.6 % (37.0-47.0) Mean Corpuscular Volume 101.1 fl (82.0-101.0) Mean Corpuscular Hemoglobin 32.5 pg (29.0-33.0) Mean Corpuscular 32.2 g/dl (32.0-37.0) Hemoglobin Concent Red Cell Distribution Width 16.3 % (11.5-14.5) Platelet Count 140 10^3/UL (140-415) Mean Platelet Volume 9.5 fl (7.4-10.4) Immature Granulocytes % 0.400 % (0.001-0.429) Neutrophils % 30.3 % (39.0-77.0) Lymphocytes % 40.1 % (15.0-51.0) Monocytes % 21.9 % (0.0-11.0) Eosinophils % 6.5 % (0.0-7.0) Basophils % 0.8 % (0.0-2.0) Nucleated Red Blood Cells % 0.0 /100WBC (0.0-0.0) Immature Granulocytes # 0.010 10^3/ul (0.0-0.031) Neutrophils # 0.8 10^3/ul (1.6-7.5) Lymphocytes # 1.0 10^3/ul (0.8-2.9) Monocytes # 0.5 10^3/ul (0.3-0.9) Eosinophils # 0.2 10^3/ul (0.0-0.5) Basophils # 0.0 10^3/ul (0.0-0.1) Nucleated Red Blood Cells # 0.0 10^3/ul (0.0-0.0) Sodium Level 136 mmol/L (135-144) Potassium Level 5.5 mmol/L (3.5-5.1) 5.4 mmol/L (3.5-5.1) Chloride Level 96 mmol/L (97-110) Carbon Dioxide Level 26 mmol/L (21-31) Anion Gap 14 (5-13) Blood Urea Nitrogen 68 mg/dl (7-20) Creatinine 9.28 mg/dl (0.44-1.00) Est Glomerular Filtrat mL/min (>60) Rate mL/min Glucose Level 68 mg/dl (70-220) Calcium Level 9.0 mg/dl (8.4-10.2) MARY PATE September 26, 2018 18:30
[2018-09-26] MEDS: ATORVASTATIN 20 MG TAB PO SCH (20:44)
[2018-09-26] MEDS: MIRTAZAPINE 15 MG TAB PO SCH (20:44)
[2018-09-26] MEDS: GABAPENTIN 300 MG CAP PO SCH (20:44)
[2018-09-27] VITALS (18 sets, daily range): BP systolic 110–149; BP diastolic 54–71; PULSE 54–66; RESP 18
[2018-09-27] MEDS: HYDROCODONE/APAP (5/325) TAB PO PRN (01:21)
[2018-09-27] MEDS: LEVOTHYROXINE 137 MCG TAB PO SCH (06:09)
[2018-09-27] MEDS: ERYTHROMYCIN BASE (DR) 250 MG CAP PO SCH (07:50)
[2018-09-27] MEDS: CALCIUM ACETATE 667 MG CAP PO SCH (08:39)
[2018-09-27] MEDS: AMLODIPINE 5 MG TAB PO SCH (08:40)
[2018-09-27] MEDS: METOCLOPRAMIDE 10 MG INJ IV SCH (08:40)
[2018-09-27] MEDS: HEPARIN 5,000 UNIT/1 ML VIAL SC SCH (08:41)
--- NOTE | 2018-09-27 11:14 | PDOCDIS ---
Discharge Instructions CONDITION [id number] Patient Condition: [id number] Stable HOME CARE INSTRUCTIONS: [id number] Diet Instructions: [id number] Low Fat /Cholesterol [id number] Special Diet: [id number] Renal FOLLOW UP/APPOINTMENTS Follow-up Plan Recommend at least 8 weeks of outpatient physical therapy for right rotator cuff and debility. Patient to follow-up with PCP. . MARY PATE September 27, 2018 11:14
[2018-09-27] MEDS ORDERED: METO5TAB58 PO (11:17)
[2018-09-27] MEDS ORDERED: POLY17PO6 PO (11:24)
[2018-09-27] MEDS ORDERED: DOCU-144 PO (11:24)
--- NOTE | 2018-09-27 13:40 | DS ---
DATE OF ADMISSION: 09/23/2018 DATE OF DISCHARGE: 09/27/2018 FINAL DIAGNOSES: A 73-year-old female who had presented to the emergency room after a syncopal episode in the bathroom of restaurant and was admitted for workup. 1. Syncope: Echo reviewed, which showed preserved ejection fraction of 55% with stage I diastolic dysfunction without significant valvular abnormality. - The patient has been in sinus rhythm throughout hospitalization. - Carotid Doppler without significant stenosis. - CT head without acute abnormality. - Status post physical therapy evaluation for which final recommendations are home health PT post-hospitalization. 2. Right shoulder severe pain with reduced range of motion with MRI showing right rotator cuff tear. - This is a mixed traumatic and degenerative tear. - Also, given type of tear, Ortho also recommend conservative treatment and expect improvement with physical therapy and time. - Final recommendations are at least 8 weeks of outpatient physical therapy for right rotator cuff tear. 3. Status post right hip pain: Now resolved. 4. End-stage renal disease on hemodialysis. 5. Abdominal pain, resolved. 6. Nausea and abdominal pain. - Abdominal ultrasound showed CBD dilatation, confirmed to be physiological and MRCP without evidence of intra or extrahepatic ductal dilatation. - The patient was started on Reglan with good improvement. Likely has gastroparesis from neuropathy. DISPOSITION: To home. ACTIVITIES: As tolerated. FOLLOWUP: Follow up will be with primary care doctor in the next 1 to 2 weeks and for at least minimum of 8 weeks outpatient physical therapy for shoulder and physical therapy also for debility. DIET: Recommended diet is low cholesterol, renal diet. DISCHARGE MEDICATIONS: For a complete list of discharge medications, please review the patient's chart. DISCHARGE CONDITION: Stable. Time spent on discharge coordination today has also been about half an hour. Dictated By: MARY PATE MD BA/NTS Conf#: [id number] DID#: [id number] CC: CIRA PARNELL MD; JAYNE RODRIGUES;*Isaiah* KRISTINA
== END 2018-09-27 12:13 | disposition home health service (06) | DRG 312 ==
LOC: E/R 16:27 → 6WM 17:44 → MS1 09-26 16:59
PROVIDERS: ADMIT Internal Medicine; ATTEND Family Medicine
PROC: 5A1D70Z Performance of Urinary Filtration, Intermittent, Less than 6 Hours Per Day (ICD-10-PCS; principal; 2018-09-24)
DX: R55 Syncope and collapse (principal); N18.6 End stage renal disease; I12.0 Hypertensive chronic kidney disease with stage 5 chronic kidney disease or end stage renal disease; Z99.2 Dependence on renal dialysis; M75.101 Unspecified rotator cuff tear or rupture of right shoulder, not specified as traumatic; M25.551 Pain in right hip; E78.5 Hyperlipidemia, unspecified; E03.9 Hypothyroidism, unspecified; E55.9 Vitamin D deficiency, unspecified; K31.84 Gastroparesis; G62.9 Polyneuropathy, unspecified; I45.81 Long QT syndrome; I44.0 Atrioventricular block, first degree; Z91.81 History of falling; E87.5 Hyperkalemia; D70.9 Neutropenia, unspecified; R10.12 Left upper quadrant pain
CPT/HCPCS: 36415; 70450; 71045; 73221; 73510; 74181; 76705; 80048; 80053; 82607; 82652; 82962; 83036; 83540; 83690; 83735; 84100; 84132; 84484; 85025; 87340; 90935; 93005; 93306; 93880; 97116; 97162; J1644; J2060; J2405; J2765; J2916; J3420